=== PATIENT | female | born 1955 | race Caucasian/White ===

== ENCOUNTER 2023-10-10 22:31 | Emergency (ER) | payer MEDICARE, OTHER, SELFPAY ==
[2023-10-10 22:31] VITALS: BMI 25.8
[2023-10-10 22:35] VITALS: BP 112/76
[2023-10-10 22:56] LABS: % Basophils 0.8 % (0-2); % Eosinophils 4.4 % (0-6); % Immature Granulocytes 0.1 % (0-0.5); % Lymphocytes 38.2 % (20.5-51.1); % Monocytes 5.2 % (1.7-9.3); % Neutrophils 51.3 % (42.2-75.2); Absolute Basophils 0.1 10^3/uL (0-0.2); Absolute Eosinophils 0.3 10^3/uL (0-0.7); Absolute Lymphocytes 2.9 10^3/uL (1.2-3.4); Absolute Monocytes 0.4 10^3/uL (0.1-0.6); Absolute Neutrophils 3.8 10^3/uL (1.4-6.5); Hematocrit 39.4 % (37.0-47.0); Hemoglobin 13.8 g/dL (12.0-16.0); Mean Corpuscular Hgb 29.3 pg (27.0-31.0); Mean Corpuscular Volume 83.7 fL (81.0-99.0); Mean Platelet Volume 8.9 fL (7.4-10.4); Nucleated Red Blood Cells % 0 %; Platelet Count 204 10^3/uL (130-400); Red Blood Cell Count 4.71 10^6/uL (4.20-5.40); Red Cell Dist. Width 13.2 % (11.5-14.5); White Blood Cell Count 7.5 10^3/uL (4.8-10.8)
[2023-10-10 23:11] LABS: ALT (SGPT) 21 U/L (0-35); AST (SGOT) 27 U/L (14-36); Albumin 4.5 g/dl (3.5-5.0); Alkaline Phosphatase 57 U/L (38-126); Blood Urea Nitrogen 17 mg/dl (7-17); Calcium 9.7 mg/dl (8.4-10.2); Carbon Dioxide 27 mmol/L (22-30); Chloride 102 mmol/L (98-107); Glucose 133 mg/dl (70-99); Lipase 207 U/L (23-300); Potassium 3.8 mmol/L (3.5-5.1); Sodium 136 mmol/L (135-145); Total Bilirubin 0.3 mg/dl (0.2-1.3); Total Protein 7.3 g/dl (6.3-8.2); eGFR > 60.00
[2023-10-10 23:38] VITALS: BP 103/91
[2023-10-11] VITALS: BP 107/75
[2023-10-11 01:00] VITALS: BP 107/72
[2023-10-11 01:41] LABS: Urine Albumin Negative (Neg - Trace); Urine Bilirubin Negative (Negative); Urine Character Clear (Clear); Urine Color Yellow; Urine Glucose Negative (Negative); Urine Ketone 3+ (Negative); Urine Leukocyte 1+ (Negative); Urine Nitrite Negative (Negative); Urine Occult Blood 1+ (Negative); Urine Specific Gravity 1.025 (<1.030); Urine Urobilinogen Negative (Neg - 1+)
[2023-10-11 01:50] LABS: Urine Calcium Oxalate Crystals Present
[2023-10-11 01:51] LABS: Urine Amorphous Seen
[2023-10-11 01:52] LABS: Urine Bacteria Few (Negative)
[2023-10-11 02:04] VITALS: BP 129/84
[2023-10-11 02:04] LABS: Troponin I < 0.012 ng/ml
--- NOTE | 2023-10-11 02:21 | ED.GENMED ---
History of Present Illness
General
Chief Complaint: Abdominal Pain
Source: patient
Exam Limitations: none
Time Seen by Provider: 10/11/23 01:00
Nursing documentation reviewed up to this point in time: agreed with
Travel History
Have you had any contact with someone who has COVID-19?: No
Do you have any symptoms of coronavirus? Fever > 100 degrees, chills, cough, shortness of breath, sore throat, loss of taste or smell, muscle aches, or headache?: No
History of Present Illness
History of Present Illness:
68-year-old female with past medical history of hypertension who presents to the emergency room for evaluation of abdominal pain. Patient reports onset of symptoms around 8:30 PM�she states that she ate dinner at 6:30 PM which consisted of lobster
with dessert of creme brulee. 2 hours later started with epigastric abdominal pain associate with nausea and multiple episodes of vomiting. She says that symptoms lasted for about 2 hours; she came to the emergency room and shortly after arrival
here in the emergency room her symptoms resolved. She is now asymptomatic. She was in her normal state of health prior to onset of symptoms. She denies any associated fevers or chills. She has not had any flank pain. She denies any dysuria,
hematuria, change in urinary frequency. No change in bowel movements. No chest pain or shortness of breath associated with the symptoms. She denies having had similar symptoms in the past but she says that she was told that she has gallstones on
prior imaging done for kidney stones in the past.
Review of Systems
Review of Systems
All Other Systems: ROS reviewed and negative except as documented in HPI and ROS
Constitutional: Denies fever or chills
EENT: Denies sore throat or runny nose
Respiratory: Denies cough or trouble breathing
Cardiac: Denies chest pain or palpitations
ABD/GI: Reports abdominal pain, nausea and vomiting; Denies diarrhea or constipated
: Denies dysuria, frequency, flank pain or bleeding
Musculoskeletal: Denies neck pain or back pain
Neurological: Denies dizzy, headache, weakness or numbness
Phy Exam
Physical Exam
Physical Exam:
General: Awake, alert, oriented x3; no acute distress
Head: Normocephalic, atraumatic
Eyes: Conjunctiva normal, pupils equal round and reactive to light bilaterally, sclera anicteric
Throat: Airway intact, handling secretions
Neck: Trachea midline, supple without meningismus
Lungs: Clear to auscultation bilaterally, no wheezing, rales, rhonchi
Heart: Regular rate and rhythm, no murmurs, gallops, or rubs
Abd: Soft, non distended, nontender to deep palpation with no abdominal masses
Neuro: No gross deficits
Skin: no rash, no jaundice
Extremities: No edema in extremities, warm and well-perfused
Scores
Heart Failure Risk
Heart Failure Risk Score: Not Applicable
Heart Score for Chest Pain Patients
STEMI patient?: Not applicable
Withdrawal Assessment of Alcohol
Withdrawal Assessment Completed?: Not applicable
Course
Orders/Labs/Results
Orders:
Orders
10/10/23 22:43
CMP [Comprehensive Metabolic Panel] Urgent
Complete Blood Count/With Diff Urgent
Lipase Urgent
10/11/23 01:01
Electrocardiogram (*1) Urgent
Reason for Study: Abdominal Pain
EKG- Treatment ONCE
US Abdomen Complete/Upper Urgent
Comment:
Reason For Exam: upper abd pain, N/V
10/11/23 01:32
Troponin I Urgent
Urinalysis Reflex To Culture Urgent
Date Specimen was Collected: 10/11/23
Time Specimen was Collected: :23
Urine Microscopic Reflex Cult Urgent
Urine Culture Urgent
JAMAAL Source: U
Specimen Description:
Date Specimen was Collected: 10/11/23
Time Specimen was Collected: :23
Abnormal Lab Results
10/10/23 10/11/23
22:43 01:32
Glucose 133 H mg/dl
(70-99)
Urine Ketones 3+ A
(Negative)
Ur Occult Blood Reflex 1+ A
(Negative)
Leukocyte Esterase Rfl 1+ A
(Negative)
Urine RBC 3-6 A /HPF
(0-2)
Urine Bacteria (Reflex) Few A
(Negative)
10/10/23 22:43
10/10/23 22:43
Vital Signs
Initial and Last Documented VS:
Initial Vital Signs
Temp Pulse Resp BP Pulse Ox
36.5 C 64 24 112/76 100
10/10/23 22:35 10/10/23 22:35 10/10/23 22:35 10/10/23 22:35 10/10/23 22:35
Last Documented Vital Signs
Temp Pulse Resp BP Pulse Ox
36.5 C 64 24 107/72 95
10/10/23 22:35 10/10/23 22:35 10/10/23 22:35 10/11/23 01:00 10/11/23 01:00
MDM/Problems Addressed
Differential Diagnosis Includes:
Biliary colic, cholecystitis, choledocholithiasis, pancreatitis, gastritis, anginal equivalent somewhat less likely
MDM/Problems Addressed:
68-year-old female presents for evaluation after 2 hour-long episode of nausea, vomiting, epigastric pain after a large fatty meal. Symptoms now resolved. She does have known gallstones. Vital signs are normal. Exam as above. Sent labs
including a CBC and a CMP which were unremarkable, lipase which was normal. EKG unremarkable and troponin is undetectable. Urinalysis no signs of infection. Will check upper abdominal ultrasound. Suspect likely biliary colic.
Ultrasound reviewed shows multiple gallstones including stone at the gallbladder neck but no gallbladder wall thickening, no pericholecystic fluid. No dilation of the CBD. Patient is completely asymptomatic. She has normal LFTs nothing to suggest
biliary obstruction at this point in time. She has no fever, leukocytosis or continued pain/tenderness to suggest cholecystitis and no findings to suggest this diagnosis on ultrasound. Suspect that this is likely an episode of biliary colic. I
spoke with patient and explained likely diagnosis. I explained that she should see general surgeon to discuss cholecystectomy and she will call tomorrow to make an appointment. She indicated understanding. Advised her to avoid fatty meals. We
spoke about return precautions. All questions answered.
*Radiology
Radiology exam reviewed: radiology read reviewed
*Pulse Oximetry
Patient hypoxic: no
*EKG
Interpreted by ED Provider?: Yes
Heart Rate: 70
Rate: normal
Rhythm: sinus and PVC's
[facility]: normal axis
Interval: normal interval
QRS Pattern: normal QRS
Ischemia: no ischemia
*Critical Care Note
Total Time (30-74mins, 75-104mins- exclusive of procedures): Not Applicable
Data Reviewed
Source: patient and family (Son)
ED Attending Note
-
Portions of this chart may have been created with voice recognition software.� Occasional wrong word or��sound alike� substitutions may have occurred due to the inherent limitations of voice recognition software.
Discharge Plan
Departure
Patient Disposition: Home (Routine Discharge)
Date of Disposition: 10/11/23
Time of Disposition: 02:27
Patient with high blood pressure during this ER visit?: No
Discharge Problem:
Biliary colic
Instructions: Gallstones ED
Prescriptions:
No Action
losartan 25 mg Tablet
25 mg PO DAILY
Referrals:
Vikki Martin CRNP [Family Provider] -
Jeferson Larsen MD [Active] - Call in 1-3 days for appt (General Surgeon--call in AM to schedule appointment)
Activity Restrictions/Additional Instructions:
You should avoid fatty foods and keep a bland diet for now to prevent recurrence of symptoms. You should call first thing tomorrow to schedule an appointment with the general surgeon to discuss having your gallbladder taken out as we discussed. If
you develop fever chills or if you have return of severe pain, or if you notice jaundice/yellowing of your skin, or if you notice any other new symptoms that are concerning you should return immediately for reassessment.
Thank you for visiting the Emergency Department at [facility].
1. Please schedule a follow up appointment as directed. Call first thing tomorrow morning to make an appointment.
2. If indicated, please take your medications as instructed and indicated on discharge paperwork.
3. If any of your symptoms do not improve, or persist, or become more severe within 6-12 hours, please return to the emergency department for further care.
4. Please return to the emergency department if you develop a headache, neck pain/stiffness, fever greater than 100.4F, chest pain, shortness of breath, persistent nausea, vomiting, slurred speech, difficulty walking, numbness/tingling, weakness,
signs of infection or any other symptoms that are worrisome to you.
Please call [phone] if you have any questions.
Interventions
Interventions:
*Risk Screen - Suicide Last Done: 10/10/23 22:35
*General Assessment Last Done: 10/10/23 23:40
*Neglect/Abuse Screening Last Done: 10/10/23 22:35
ED- Fall Risk Assessment Last Done: 10/10/23 23:44
*ED COVID-19 Vaccine History Last Done: 10/10/23 23:40
CY-Gnnvyf-Pigxququwk Assessment Last Done: 10/10/23 23:41
Discharge Date and Time
Print Language: TAMAZIGHT
== END 2023-10-11 02:44 | disposition home or self-care (01) ==
LOC: EMR 22:31
PROVIDERS: EMERGENCY PHYSICIAN Emergency Medicine; FAMILY PHYSICIAN Family Medicine Adult Medicine
DX: N20.0 Calculus of kidney (principal); R11.2 Nausea with vomiting, unspecified; I10 Essential (primary) hypertension; Z87.442 Personal history of urinary calculi; Z88.0 Allergy status to penicillin
CPT/HCPCS: 99284; 76700; 80053; 81003; 81015; 83690; 84484; 85025; 87086; 93005

== ENCOUNTER → 2023-12-20 08:06 | Outpatient (REF) | payer MEDICARE, OTHER, SELFPAY ==
[2023-12-20 09:15] LABS: Hematocrit 40.5 % (37.0-47.0); Hemoglobin 14.1 g/dL (12.0-16.0); Mean Corp Hgb Conc. 34.8 g/dL (33.0-37.0); Mean Corpuscular Hgb 29.5 pg (27.0-31.0); Mean Corpuscular Volume 84.7 fL (81.0-99.0); Mean Platelet Volume 9.1 fL (7.4-10.4); Platelet Count 179 10^3/uL (130-400); Red Blood Cell Count 4.78 10^6/uL (4.20-5.40); Red Cell Dist. Width 13.4 % (11.5-14.5); White Blood Cell Count 4.8 10^3/uL (4.8-10.8)
[2023-12-20 09:44] LABS: ALT (SGPT) 23 U/L (0-35); AST (SGOT) 31 U/L (14-36); Albumin 4.5 g/dl (3.5-5.0); Alkaline Phosphatase 54 U/L (38-126); Blood Urea Nitrogen 22 mg/dl (7-17); Calcium 9.5 mg/dl (8.4-10.2); Carbon Dioxide 27 mmol/L (22-30); Chloride 103 mmol/L (98-107); Glucose 86 mg/dl (70-99); Potassium 4.3 mmol/L (3.5-5.1); Sodium 138 mmol/L (135-145); Total Bilirubin 0.6 mg/dl (0.2-1.3); Total Protein 6.9 g/dl (6.3-8.2); eGFR > 60.00
== END ==
LOC: SDSPAT 08:06
PROVIDERS: ATTENDING PHYSICIAN Surgery; FAMILY PHYSICIAN Family Medicine Adult Medicine
DX: Z01.818 Encounter for other preprocedural examination (principal)
CPT/HCPCS: 36415; 80053; 85027

== ENCOUNTER 2023-12-31 06:23 | Day surgery (SDC) | payer MEDICARE, OTHER, SELFPAY ==
[2023-12-20 08:14] VITALS: BMI 24.7
[2023-12-31] VITALS (10 sets, daily range): BP systolic 98–128; BP diastolic 60–85; BMI 24.7
[2023-12-31] MEDS: TYLENOL 1000 MG PO (09:40)
[2023-12-31] MEDS: EMEND 40 MG PO (10:48)
[2023-12-31] MEDS: NORMOSOL-R 1000 IV (10:49)
[2023-12-31] MEDS: ZOFRAN 4 MG IV (14:15)
[2023-12-31] MEDS: SUBLIMAZE 25 MCG IV (14:18)
== END 2023-12-31 16:10 | disposition home or self-care (01) ==
LOC: SDS 06:23
PROVIDERS: ATTENDING PHYSICIAN Surgery; FAMILY PHYSICIAN Family Medicine Adult Medicine
DX: K80.10 Calculus of gallbladder with chronic cholecystitis without obstruction (principal)
CPT/HCPCS: 47563; 88304; 74300; 76000; A4300; J1335

== ENCOUNTER 2024-01-17 11:14 | Emergency (ER) | payer MEDICARE, OTHER, SELFPAY ==
[2024-01-17 11:27] VITALS: BP 111/83
[2024-01-17 12:07] LABS: % Basophils 0.5 % (0-2); % Eosinophils 2.3 % (0-6); % Immature Granulocytes 0.3 % (0-0.5); % Lymphocytes 22.3 % (20.5-51.1); % Neutrophils 66.6 % (42.2-75.2); Absolute Eosinophils 0.2 10^3/uL (0-0.7); Absolute Lymphocytes 1.7 10^3/uL (1.2-3.4); Absolute Monocytes 0.6 10^3/uL (0.1-0.6); Hematocrit 40.2 % (37.0-47.0); Mean Corp Hgb Conc. 34.8 g/dL (33.0-37.0); Mean Corpuscular Hgb 30.2 pg (27.0-31.0); Mean Corpuscular Volume 86.6 fL (81.0-99.0); Mean Platelet Volume 8.7 fL (7.4-10.4); Nucleated Red Blood Cells % 0 %; Platelet Count 179 10^3/uL (130-400); Red Blood Cell Count 4.64 10^6/uL (4.20-5.40); Red Cell Dist. Width 13.1 % (11.5-14.5); White Blood Cell Count 7.5 10^3/uL (4.8-10.8)
[2024-01-17 12:20] LABS: Urine Albumin Negative (Neg - Trace); Urine Bilirubin Negative (Negative); Urine Character Clear (Clear); Urine Color Yellow; Urine Glucose Negative (Negative); Urine Ketone Negative (Negative); Urine Leukocyte 2+ (Negative); Urine Nitrite Negative (Negative); Urine Occult Blood 3+ (Negative); Urine Urobilinogen Negative (Neg - 1+)
[2024-01-17 12:21] LABS: ALT (SGPT) 20 U/L (0-35); AST (SGOT) 25 U/L (14-36); Albumin 4.3 g/dl (3.5-5.0); Alkaline Phosphatase 60 U/L (38-126); Blood Urea Nitrogen 12 mg/dl (7-17); Carbon Dioxide 29 mmol/L (22-30); Chloride 105 mmol/L (98-107); Glucose 92 mg/dl (70-99); Lipase 81 U/L (23-300); Potassium 4.2 mmol/L (3.5-5.1); Sodium 140 mmol/L (135-145); Total Bilirubin 0.5 mg/dl (0.2-1.3); Total Protein 6.9 g/dl (6.3-8.2); eGFR > 60.00
[2024-01-17 12:27] LABS: Calcium 9.7 mg/dl (8.4-10.2)
[2024-01-17 12:43] LABS: Urine Bacteria Moderate (Negative); Urine White Cell 40-50 /HPF (0-5)
[2024-01-17] MEDS: TORADOL 15 MG IV (13:06)
[2024-01-17 13:24] VITALS: BP 118/77
[2024-01-17 14:00] VITALS: BP 114/72
--- NOTE | 2024-01-17 14:49 | ED.GENMED ---
History of Present Illness
General
Chief Complaint: Abdominal Symptoms
Source: patient
Exam Limitations: none
Time Seen by Provider: 01/17/24 12:02
Nursing documentation reviewed up to this point in time: agreed with
History of Present Illness
History of Present Illness:
68-year-old female presenting to the emergency department today with concerns of suprapubic discomfort and some degree of right-sided abdominal discomfort over the past couple days. Does have urinary symptoms. Had a laparoscopic cholecystectomy 17
days ago with no complications or issues over the first 2 weeks or so. Denies any chest pain shortness of breath or fevers.
Review of Systems
Review of Systems
Allergies reviewed?: Yes
All Other Systems: ROS reviewed and negative except as documented in HPI and ROS
Phy Exam
Physical Exam
Physical Exam:
GENERAL: Alert , in no apparent distress
EYE: pupils equal and reactive
NECK: Supple, no significant adenopathy.
ENT: o/p clr, mmm.
CARDIAC: Regular rate and rhythm .
LUNGS: Clear breath sounds bilaterally, no acute respiratory distress, no wheezes/rales/rhonchi
ABDOMEN: Mild discomfort to the abdomen mainly through the suprapubic region very minimal to the right upper quadrant none to the left side. No flank pain.
NEUROLOGICAL: Alert and oriented, no focal neuro deficits
SKIN: Warm and dry, skin intact.
MUSCULOSKELETAL: No edema, well perfused.
PSYCH: Normal and appropriate interaction.
Course
Orders/Labs/Results
Orders:
Orders
01/17/24 11:46
Complete Blood Count/With Diff Urgent
Comprehensive Metabolic Panel Urgent
Lipase Urgent
Urinalysis Reflex To Culture Urgent
Date Specimen was Collected: 01/17/24
Time Specimen was Collected: 11:41
Urine Microscopic Reflex Cult Urgent
Urine Culture Urgent
JAMAAL Source: U
Specimen Description:
Date Specimen was Collected: 01/17/24
Time Specimen was Collected: 11:41
01/17/24 12:57
CT Abd/Pel (IV only)-DH only Urgent
Comment:
Reason For Exam: abd pain ruq, 17 d/a lap william,
Ketorolac [Toradol] 15 mg IV NOW STA
01/17/24 14:49
Cefdinir [Omnicef] 300 mg PO NOW STA
Abnormal Lab Results
01/17/24
11:46
Ur Occult Blood Reflex 3+ A
(Negative)
Leukocyte Esterase Rfl 2+ A
(Negative)
Urine RBC 3-6 A /HPF
(0-2)
Urine WBC (Reflex) 40-50 A /HPF
(0-5)
Urine Bacteria (Reflex) Moderate A
(Negative)
01/17/24 11:46
01/17/24 11:46
Vital Signs
Initial and Last Documented VS:
Initial Vital Signs
Temp Pulse Resp BP Pulse Ox
98.1 F 90 18 111/83 98
01/17/24 11:27 01/17/24 11:27 01/17/24 11:27 01/17/24 11:27 01/17/24 11:27
Last Documented Vital Signs
Temp Pulse Resp BP Pulse Ox
98.1 F 77 16 114/72 100
01/17/24 11:27 01/17/24 14:00 01/17/24 14:00 01/17/24 14:00 01/17/24 14:00
MDM/Problems Addressed
MDM/Problems Addressed:
68-year-old female presenting to the emergency department today with concerns of abdominal discomfort. She is 17 days out of gallbladder surgery. Otherwise here she is well-appearing no distress no fever normal vital signs labs unremarkable no
white count urinalysis does appear to be consistent with potential UTI. CT scan without emergent findings but does show potential inflammation of the bladder. Plan for treatment with antibiotics and otherwise outpatient follow-up. Return
precautions given.
*Critical Care Note
Total Time (30-74mins, 75-104mins- exclusive of procedures): Not Applicable
ED Attending Note
-
Portions of this chart may have been created with voice recognition software.� Occasional wrong word or��sound alike� substitutions may have occurred due to the inherent limitations of voice recognition software.
Discharge Plan
Departure
Patient Disposition: Home (Routine Discharge)
Date of Disposition: 01/17/24
Time of Disposition: 14:51
Patient with high blood pressure during this ER visit?: No
Condition: Good
Covid-19: Not Applicable
Discharge Problem:
Acute UTI
Instructions: Urinary Tract Infection, Adult ED
Prescriptions:
New
cefpodoxime 200 mg tablet
200 mg PO BID 7 Days Qty: 14 0RF
No Action
losartan 25 mg Tablet
25 mg PO DAILY
acetaminophen [acetaminophen] 325 mg tablet
650 mg PO Q4HPRN PRN (Reason: mild pain) Qty: 1 0RF
ibuprofen 200 mg tablet
400 - 600 mg PO Q6HPRN PRN (Reason: moderate pain) Qty: 1 0RF
oxycodone 5 mg tablet
5 mg PO Q4HPRN PRN (Reason: breakthrough/severe pain) Qty: 10 0RF
Referrals:
Vikki Martin CRNP [Family Provider] -
Activity Restrictions/Additional Instructions:
You came to the emergency department today with concerns of abdominal discomfort. You are found to have a urinary tract infection. Please take cefpodoxime twice daily for the 7 days and follow-up closely as an outpatient. Return to the emergency
department for any worsening, new or concerning symptoms.
Interventions
Interventions:
*Risk Screen - Suicide Last Done: 01/17/24 11:57
*General Assessment Last Done: 01/17/24 11:58
*Neglect/Abuse Screening Last Done: 01/17/24 11:57
ED- Fall Risk Assessment Last Done: 01/17/24 11:57
*ED COVID-19 Vaccine History Last Done: 01/17/24 11:58
GE-Ssimuu-Phopcsyjqc Assessment Last Done: 01/17/24 11:58
Discharge Date and Time
Print Language: MARSHALLESE
[2024-01-17] MEDS: OMNICEF 300 MG PO (14:55)
== END 2024-01-17 14:45 | disposition home or self-care (01) ==
LOC: EMR 11:14
PROVIDERS: EMERGENCY PHYSICIAN Emergency Medicine; FAMILY PHYSICIAN Family Medicine Adult Medicine
DX: N39.0 Urinary tract infection, site not specified (principal); R10.30 Lower abdominal pain, unspecified; I10 Essential (primary) hypertension; M81.0 Age-related osteoporosis without current pathological fracture; Z87.891 Personal history of nicotine dependence; Z87.442 Personal history of urinary calculi; Z90.49 Acquired absence of other specified parts of digestive tract; Z98.890 Other specified postprocedural states; Z88.0 Allergy status to penicillin
CPT/HCPCS: 99285; 96374; 74177; 80053; 81003; 81015; 83690; 85025; 87077; 87086; 87186; Q9967

== ENCOUNTER 2024-04-06 11:34 | Emergency (ER) | payer MEDICARE, OTHER, SELFPAY ==
[2024-04-06 11:42] VITALS: BP 120/77
[2024-04-06 12:02] LABS: % Basophils 0.3 % (0-2); % Eosinophils 0.5 % (0-6); % Immature Granulocytes 0.1 % (0-0.5); % Lymphocytes 16.6 % (20.5-51.1); % Monocytes 7.5 % (1.7-9.3); Absolute Lymphocytes 1.2 10^3/uL (1.2-3.4); Absolute Monocytes 0.6 10^3/uL (0.1-0.6); Absolute Neutrophils 5.6 10^3/uL (1.4-6.5); Hematocrit 41.1 % (37.0-47.0); Hemoglobin 14.3 g/dL (12.0-16.0); Mean Corp Hgb Conc. 34.8 g/dL (33.0-37.0); Mean Corpuscular Hgb 29.5 pg (27.0-31.0); Mean Corpuscular Volume 84.7 fL (81.0-99.0); Mean Platelet Volume 8.8 fL (7.4-10.4); Nucleated Red Blood Cells % 0 %; Platelet Count 170 10^3/uL (130-400); Red Blood Cell Count 4.85 10^6/uL (4.20-5.40); Red Cell Dist. Width 13.2 % (11.5-14.5); White Blood Cell Count 7.5 10^3/uL (4.8-10.8)
[2024-04-06 12:15] LABS: ALT (SGPT) 20 U/L (0-35); AST (SGOT) 28 U/L (14-36); Albumin 4.5 g/dl (3.5-5.0); Alkaline Phosphatase 61 U/L (38-126); Blood Urea Nitrogen 11 mg/dl (7-17); Calcium 9.6 mg/dl (8.4-10.2); Carbon Dioxide 24 mmol/L (22-30); Chloride 103 mmol/L (98-107); Glucose 168 mg/dl (70-99); Potassium 4.1 mmol/L (3.5-5.1); Sodium 141 mmol/L (135-145); Total Bilirubin 0.7 mg/dl (0.2-1.3); Total Protein 7.3 g/dl (6.3-8.2); eGFR > 60.00
--- NOTE | 2024-04-06 13:33 | ED.GENMED ---
History of Present Illness
General
Chief Complaint: Rectal Bleeding
Time Seen by Provider: 04/06/24 13:19
History of Present Illness
History of Present Illness:
68-year-old female history of hypertension, kidney stones, constipation presenting with rectal pressure and rectal bleeding after having bowel movements. Patient states that she has been having the rectal pressure for the past 4 weeks which has
been worsening over the past 1 week. Patient notices blood streaks stool and bleeding in her underwear after having a bowel movement. Patient states that she had a history of hemorrhoids when she was but none since. Patient states that
she had a normal colonoscopy last year. Patient denies being on blood thinners. Patient denies abdominal pain, nausea, vomiting, or diarrhea. Patient states that she has been constipated for which she has been taking a stool softener.
Phy Exam
Physical Exam
Physical Exam:
General: Alert, no acute distress
Head: NCAT
Eyes: clear conjunctiva
Neck: supple
Cardiac: regular rate and rhythm, no murmur
Lungs: clear to auscultation bilaterally. No wheezes, rales, or rhonchi. Speaking full unlabored sentences. No respiratory distress.
Abdomen: soft, nondistended nontender. No rebound or guarding.
MSK: no lower extremity edema bilaterally. No deformity
Skin: warm, dry
Neuro: Alert and oriented x3. no focal deficits
: no thrombosed external hemorrhoids. brown stool, guaiac negative, no bleeding
Course
Orders/Labs/Results
Orders:
Orders
04/06/24 11:54
Type+Screen Urgent
Complete Blood Count/With Diff Urgent
Comprehensive Metabolic Panel Urgent
Abnormal Lab Results
04/06/24
11:54
Lymphocytes % 16.6 L %
(20.5-51.1)
Glucose 168 H mg/dl
(70-99)
04/06/24 11:54
04/06/24 11:54
Vital Signs
Initial and Last Documented VS:
Initial Vital Signs
Temp Pulse Resp BP Pulse Ox
98.3 F 104 18 120/77 95
04/06/24 11:42 04/06/24 11:42 04/06/24 11:42 04/06/24 11:42 04/06/24 11:42
Last Documented Vital Signs
Temp Pulse Resp BP Pulse Ox
98.3 F 104 18 120/77 95
04/06/24 11:42 04/06/24 11:42 04/06/24 11:42 04/06/24 11:42 04/06/24 11:42
MDM/Problems Addressed
Differential Diagnosis Includes:
internal hemorrhoid, GI bleed, anemia
MDM/Problems Addressed:
68yoF presenting with rectal pressure and bleeding after having bowel movement worsening over the past 1 week. Pt not on blood thinners. Denies abdominal pain, nausea, vomiting, or diarrhea. States has been constipated, has been taking stool
softener. Pt states she has been taking preparation H with minimal relief. On exam, abdomen soft nondistended nontender. Rectal exam shows no thrombosed external hemorrhoids, no active bleeding, guaiac negative. Results reviewed, hemoglobin 14.3,
BUN 11. Low suspicion for GI bleed, higher suspicion for internal hemorrhoids. Advised to increase fiber intake, take miralax as needed for constipation, sitz baths, discharge with GI follow up
*Critical Care Note
Total Time (30-74mins, 75-104mins- exclusive of procedures): Not Applicable
ED Attending Note
-
Portions of this chart may have been created with voice recognition software.� Occasional wrong word or��sound alike� substitutions may have occurred due to the inherent limitations of voice recognition software.
Discharge Plan
Departure
Patient Disposition: Home (Routine Discharge)
Date of Disposition: 04/06/24
Time of Disposition: 14:02
Patient with high blood pressure during this ER visit?: No
Discharge Problem:
Hemorrhoid
Instructions: Hemorrhoids (DC)
Prescriptions:
No Action
losartan 25 mg Tablet
25 mg PO DAILY
Theragen Tablet
1 tab PO DAILY
acetaminophen [Tylenol Extra Strength] 500 mg Tablet
1,000 mg PO Q6HPRN PRN (Reason: mild pain)
ibuprofen [Advil] 200 mg Tablet
200 mg PO Q6HPRN PRN (Reason: mild pain)
docusate sodium [Colace] 100 mg Capsule
100 mg PO DAILYPRN PRN (Reason: constipation)
Referrals:
Miguel Chatman DO [Family Provider] -
Activity Restrictions/Additional Instructions:
Follow up with GI within 1 week
Take miralax daily. Take fiber for softer stools. Use sitz baths
Returnt to the emergency department for abdominal pain or new/worsening symptoms
Interventions
Interventions:
*Risk Screen - Suicide Last Done: 04/06/24 11:42
*General Assessment Last Done: 04/06/24 11:42
*Neglect/Abuse Screening Last Done: 04/06/24 11:42
*ED COVID-19 Vaccine History Last Done: 04/06/24 11:42
*Nursing Disposition Last Done: 04/06/24 14:17
FB-Azhqbw-Bxnuxuulcp Assessment Last Done: 04/06/24 14:03
ED- Cardiac Assessment Last Done: 04/06/24 14:03
ED- Pulmonary Assessment Last Done: 04/06/24 14:03
Discharge Date and Time
Discharge Date/Time: 04/06/24 14:17
Print Language: ECUADOREAN
== END 2024-04-06 14:17 | disposition home or self-care (01) ==
LOC: EMR 11:34
PROVIDERS: Emergency Medicine; EMERGENCY PHYSICIAN Emergency Medicine; FAMILY PHYSICIAN Family Medicine
DX: K59.00 Constipation, unspecified (principal); I10 Essential (primary) hypertension; K64.9 Unspecified hemorrhoids
CPT/HCPCS: 99283; 80053; 85025; 86850; 86900; 86901

== ENCOUNTER → 2024-08-23 08:08 | Outpatient (REF) | payer MEDICARE, OTHER, SELFPAY | LOC: RCS 08:08 | PROVIDERS: ATTENDING PHYSICIAN Family Medicine | DX: I49.3 Ventricular premature depolarization (principal) | CPT/HCPCS: 93005; 93225; 93226 ==

== ENCOUNTER → 2024-09-19 10:52 | Outpatient (REF) | payer MEDICARE, OTHER, SELFPAY | LOC: HWRCS 10:52 | PROVIDERS: ATTENDING PHYSICIAN Internal Medicine; FAMILY PHYSICIAN Family Medicine | DX: I49.3 Ventricular premature depolarization (principal); I10 Essential (primary) hypertension; R94.31 Abnormal electrocardiogram [ECG] [EKG] | CPT/HCPCS: 78452; 93017; A9500; J2785 ==

== ENCOUNTER → 2024-09-25 14:37 | Outpatient (REF) | payer MEDICARE, OTHER, SELFPAY | LOC: RCS 14:37 | PROVIDERS: ATTENDING PHYSICIAN Internal Medicine; FAMILY PHYSICIAN Family Medicine | DX: I49.3 Ventricular premature depolarization (principal); I10 Essential (primary) hypertension | CPT/HCPCS: 93306 ==

== ENCOUNTER → 2025-01-09 09:25 | Outpatient (REF) | payer MEDICARE, OTHER, SELFPAY | LOC: RCS 09:25 | PROVIDERS: ATTENDING PHYSICIAN Internal Medicine Cardiovascular Disease; FAMILY PHYSICIAN Family Medicine; REFERRING PHYSICIAN Internal Medicine | DX: I49.3 Ventricular premature depolarization (principal) | CPT/HCPCS: 93225; 93226 ==

== ENCOUNTER → 2025-04-23 08:23 | Outpatient (REF) | payer MEDICARE, OTHER, SELFPAY | LOC: RCS 08:23 | PROVIDERS: ATTENDING PHYSICIAN Internal Medicine Cardiovascular Disease; FAMILY PHYSICIAN Family Medicine | DX: I49.3 Ventricular premature depolarization (principal) | CPT/HCPCS: 93225; 93226 ==